=== PATIENT | female | born 1985 | race Hispanic/Latino ===

== ENCOUNTER 2021-01-26 07:59 | Outpatient (CLI) | payer OTHER ==
[2021-01-26 21:58] LABS: SARS-CoV-2 PCR by NAA Not Detected (NotDetected)
== END 2021-01-26 08:00 | disposition home or self-care (01) ==
LOC: CSHLAB 07:59
PROVIDERS: ATTEND Family Medicine
DX: Z01.812 Encounter for preprocedural laboratory examination (principal); Z20.822 Contact with and (suspected) exposure to COVID-19
CPT/HCPCS: U0003; U0005

== ENCOUNTER 2021-01-29 05:07 | Inpatient (IN) | payer MEDICAID, OTHER, SELFPAY ==
[2021-01-29] MEDS ORDERED: hydrALAZINE 20 MG/ML VIAL SLOW IVP PRN (05:38)
[2021-01-29] MEDS ORDERED: Promethazine HCl 25 MG/ML VIAL IM PRN ×2 (05:38→10:06)
[2021-01-29] MEDS ORDERED: Ondansetron PF 4 MG/2 ML Vial IVP PRN ×2 (05:38→10:06)
[2021-01-29] MEDS ORDERED: Bicitra 30 ML UDCUP PO PRN (05:38)
[2021-01-29] MEDS ORDERED: Famotidine/PF 20 mg/2ml Vial SLOW IVP PRN (05:38)
[2021-01-29] MEDS: Lactated Ringer's 1,000 ML IV SCH ×2 (05:45→07:36)
[2021-01-29 05:59] VITALS: BMI 30.1
[2021-01-29] MEDS ORDERED: CEFAZOLIN 2 GM in Premix Bag 1 BAG IVPB SCH (06:00)
[2021-01-29 06:34] LABS: Hemoglobin 10.7 g/dL (12.0-15.5); Mean Corpuscular HGB CONC 31.6 g/dL (32.0-36.0); Mean Corpuscular Hemoglobin 25.4 pg (27.0-33.0); Mean Corpuscular Volume 80.3 fl (81.6-98.3); Mean Platelet Volume 11.2 fl (7.4-10.4); Platelet Count 252 10x3/uL (150-450); RBC Distribution Width 15.3 % (11.5-14.5); Red Blood Cell (RBC) Count 4.22 10x6/uL (3.90-5.03); White Blood Cell (WBC) Count 7.6 10x3/uL (3.5-10.5)
[2021-01-29 07:05] LABS: Hep B Surf Ag Non-Reactive S/CO (NonReactive)
[2021-01-29 07:07] LABS: Syphilis Antibody Nonreactive (Nonreactive); Syphilis Antibody Index 0.03 S/CO (<1.00 Non-Reactive)
[2021-01-29 07:20] LABS: HBSAg Index 0.17 S/CO (0-0.99)
[2021-01-29] MEDS ORDERED: Misoprostol 200 MCG TAB PR PRN ×2 (09:51→11:44)
[2021-01-29] MEDS ORDERED: Simethicone Chewable 80 MG TAB PO PRN (09:51)
[2021-01-29] MEDS ORDERED: Methylergonovine 0.2 MG/ML VIAL IM PRN ×2 (09:51→11:44)
[2021-01-29] MEDS ORDERED: Lanolin Ointment 7 GM TUBE TOP PRN (09:51)
[2021-01-29] MEDS ORDERED: Bisacodyl 10 MG SUPP PR PRN ×2 (09:51→11:44)
[2021-01-29] MEDS ORDERED: Acetaminophen 325 MG TAB PO PRN ×2 (09:51→11:44)
[2021-01-29] MEDS ORDERED: NS w/ Oxytocin 30 units 500 ML IV SCH ×2 (10:00→11:44)
[2021-01-29] MEDS ORDERED: Ondansetron HCl/PF 4 MG/2 ML Vial IVP PRN (10:06)
[2021-01-29] MEDS ORDERED: diphenhydrAMINE 50 MG/ML VIAL IVP PRN (10:06)
[2021-01-29] MEDS ORDERED: Naloxone HCl 0.4 mg/ml Vial IV PRN (10:06)
[2021-01-29] MEDS ORDERED: Naloxone HCl 0.4 mg/ml Vial IVP PRN ×2 (10:06)
[2021-01-29] MEDS ORDERED: Fentanyl 100 MCG/2 ML VIAL SLOW IVP PRN (10:06)
[2021-01-29] MEDS ORDERED: Meperidine HCl/PF 25 MG/ML VIAL SLOW IVP PRN (10:06)
[2021-01-29] MEDS ORDERED: Hydrocerin (Eucerin) Cream 120 gm Jar TOP PRN (10:06)
[2021-01-29] MEDS ORDERED: Promethazine HCl 25 MG SUPP PR PRN (10:06)
[2021-01-29] MEDS ORDERED: Communication Order-Pharmacy FS SCH (10:15)
[2021-01-29] MEDS ORDERED: Ibuprofen 800 MG TAB PO SCH (14:00)
[2021-01-29] MEDS ORDERED: Ketorolac Tromethamine 30 MG/ML VIAL IVP PRN (15:00)
[2021-01-30 04:48] LABS: Hemoglobin 8.4 g/dL (12.0-15.5); Mean Corpuscular HGB CONC 31.2 g/dL (32.0-36.0); Mean Corpuscular Hemoglobin 25.1 pg (27.0-33.0); Mean Corpuscular Volume 80.3 fl (81.6-98.3); Mean Platelet Volume 11.5 fl (7.4-10.4); Platelet Count 203 10x3/uL (150-450); RBC Distribution Width 15.4 % (11.5-14.5); Red Blood Cell (RBC) Count 3.35 10x6/uL (3.90-5.03); White Blood Cell (WBC) Count 10.8 10x3/uL (3.5-10.5)
[2021-01-30] MEDS: Ferrous Sulfate 325 MG TAB PO SCH ×3 (07:51→20:27)
[2021-01-30] MEDS: Docusate Calcium (SURFAK) 240 MG CAP PO SCH ×3 (07:51→20:26)
[2021-01-30] MEDS: Prenatal Vitamin 1 TAB PO SCH (08:19)
[2021-01-30] MEDS: Ibuprofen 800 MG TAB PO SCH ×3 (08:21→20:26)
[2021-01-30] MEDS ORDERED: Prenatal Vitamin 1 TAB PO SCH (09:00)
[2021-01-30] MEDS ORDERED: HYDROcodone/Acetaminophen 5/325 mg Tablet PO PRN (10:07)
[2021-01-31] MEDS: Ibuprofen 800 MG TAB PO SCH (04:42)
[2021-01-31] MEDS: Prenatal Vitamin 1 TAB PO SCH (08:42)
[2021-01-31] MEDS: Docusate Calcium (SURFAK) 240 MG CAP PO SCH (08:42)
[2021-01-31] MEDS: Ferrous Sulfate 325 MG TAB PO SCH (08:42)
[2021-01-31 08:50] VITALS: BP 108/62; TEMP 97.8
[2021-02-03] MEDS ORDERED: Ibuprofen 800 MG TAB PO SCH (22:00)
== END 2021-01-31 09:50 | disposition home or self-care (01) | DRG 787 ==
LOC: CSHLD 05:07 → CSHPP 12:05
PROVIDERS: ADMIT Family Medicine; ATTEND Family Medicine
PROC: 10D00Z1 Extraction of Products of Conception, Low, Open Approach (ICD-10-PCS; principal; 2021-01-29)
DX: O34.211 Maternal care for low transverse scar from previous cesarean delivery (principal); D62 Acute posthemorrhagic anemia; O99.02 Anemia complicating childbirth; Z3A.39 39 weeks gestation of pregnancy; Z37.0 Single live birth
CPT/HCPCS: 36415; 85027; 86780; 86850; 86900; 86901; 87340; J0690; J2405; J7120